=== PATIENT | female | born 1980 | race Caucasian/White ===

== ENCOUNTER 2017-04-16 23:15 | Emergency (ER) | payer OTHER ==
--- NOTE | 2017-04-16 23:33 | ERPHSYRPT ---
- History of Present Illness Time Seen by Provider: 04/16/17 23:22 Source: patient Exam Limitations: no limitations Physician History: [place]; now with pain, itching and swelling behind left ear; no tinnitus; no swimming; no trauma; no rash; no ticks; otherwise healthy; no toher complaints; no fever; no exposures; not Timing/Duration: today (worse), yesterday (onset), gradual onset, worse Severity: moderate Modifying Factors: Improves With: nothing Associated Symptoms: denies symptoms Allergies/Adverse Reactions: sumatriptan [From Imitrex] Allergy (Verified 07/24/16 16:18) Home Medications: Alprazolam [Xanax 0.5 mg] 0.5 mg PO BIDPRN PRN 05/27/16 [History] Albuterol 8 gm Mdi Hfa [Ventolin Hfa MDI] 8 gm IH Q4H PRN PRN 07/24/16 [ History] Diphenhydramine HCl 25 mg [Benadryl 25 mg Capsule] 25 mg PO Q4H PRN PRN [History] Hydrocodone Bit/Acetaminophen [[place] 7.5-325 Tablet] 1 each PO BID 04/16/17 [ History] Hx Tetanus, Diphtheria Vaccination/Date Given: Yes Hx Influenza Vaccination/Date Given: No Hx Pneumococcal Vaccination/Date Given: No - Review of Systems Constitutional: No Symptoms Eyes: No Symptoms Ears, Nose, & Throat: Ear Pain (post left), Nose Congestion, No Ear Discharge, No Hearing Changes, No Tinnitus, No Nose Pain, No Epistaxis, No Throat Pain, No Throat Swelling, No Hoarse, No Painful Swallowing Respiratory: Cough (chronic allergies), No Dyspnea, No Wheezing Cardiac: No Chest Pain, No Palpitations, No Syncope Abdominal/Gastrointestinal: No Abdominal Pain, No Nausea, No Vomiting, No Diarrhea Genitourinary Symptoms: No Symptoms Musculoskeletal: No Symptoms Skin: Other (insect bite post left ear) Neurological: No Symptoms Psychological: No Symptoms Endocrine: No Symptoms Hematologic/Lymphatic: No Symptoms Immunological/Allergic: No Symptoms - Past Medical History Pertinent Past Medical History: Yes Respiratory History: Asthma Psycho-Social History: Anxiety, Depression - Past Surgical History Past Surgical History: Yes Gastrointestinal: Cholecystectomy Female Surgical History: Tubal Ligation Other Surgical History: d/c. female lap - Social History Smoking Status: Current every day smoker Exposure to second hand smoke: Yes Alcohol Use: Socially Drug Use: none Patient Lives Alone: No Significant Family History: no pertinent family hx - Female History Hx Now: No - Physical Exam General Appearance: mild distress, alert Eye Exam: PERRL/EOMI, eyes nml inspection, No photophobia Ears, Nose, Throat Exam: normal ENT inspection, TMs normal, pharynx normal, moist mucous membranes, other (tender slight induration post left ear helix with what appears to be an insect bite) Neck Exam: normal inspection, non-tender, supple, full range of motion, No meningismus, No JVD Respiratory Exam: normal breath sounds, lungs clear, airway intact, No chest tenderness, No respiratory distress, No rhonchi, No wheezing Cardiovascular Exam: regular rate/rhythm, normal heart sounds, normal peripheral pulses, capillary refill <2 sec, No murmur Gastrointestinal/Abdomen Exam: soft, normal bowel sounds, No tenderness, No mass , No rebound, No organomegaly Pelvic Exam: deferred Rectal Exam: deferred Back Exam: normal inspection, normal range of motion, No CVA tenderness Extremity Exam: normal inspection, normal range of motion, No pedal edema Neurologic Exam: alert, oriented x 3, cooperative, sheet folder II-XII nml as tested, normal mood/affect, nml cerebellar function, nml station & gait Skin Exam: normal color, warm, dry, No rash, No petechiae Lymphatic Exam: No adenopathy - Course Nursing assessment & vital signs reviewed: Yes - Progress Progress Note: 04/16/17 23:32 discussed findings and treatment plan; instructions given Counseled pt/family regarding: diagnosis, need for follow-up, smoking cessation - Departure Time of Disposition: 23:33 Departure Disposition: Home Clinical Impression: Insect bite, Cellulitis Condition: Stable Critical Care Time: No Referrals: CORDELL PINON [Primary Care Provider] - Instructions: Insect Bites and Stings, Cellulitis -- Adult Additional Instructions: keep clean; apply bacitracin; ice packs alternated with warm compresses; use benadryl prn Follow-up with family doctor as directed. Call for appointment. Return if any problems. If you smoke please stop. Call or follow up with your family doctor for assistance if you need it to stop. Please wear your seatbelt when driving. Have a nice day. Thank you for allowing us to participate in your care today. :o) Dr Oscar Santos Prescriptions: Naproxen Sodium [Anaprox Ds] 550 mg PO Q8H PRN PRN #10 tablet PRN Reason: Pain Sulfamethoxazole/Trimethoprim [Bactrim Ds Tablet] 1 each PO BID #20 tablet
[2017-04-16 23:44] VITALS: BP 118/64; PULSE 89; O2SAT 100
== END 2017-04-16 23:43 | disposition home or self-care (01) ==
LOC: ED 23:15
DX: T14.8 Other injury of unspecified body region (principal); W57.XXXA Bitten or stung by nonvenomous insect and other nonvenomous arthropods, initial encounter; H60.12 Cellulitis of left external ear; R09.81 Nasal congestion; R05 Cough; H92.02 Otalgia, left ear
CPT/HCPCS: 99283